=== PATIENT | male | born 1970 | race Caucasian/White ===

== ENCOUNTER 2018-10-10 05:52 | Day surgery (SDC) | payer OTHER ==
[2018-10-10] VITALS (10 sets, daily range): BP systolic 98–108; BP diastolic 62–73; PULSE 50–60; RESP 12–24; Ht 172.7 cm; Wt 69.9 kg
[~2018-10-10] VITALS: Ht 172.7 cm; Wt 69.9 kg
[2018-10-10] MEDS ORDERED: DIVA-48 PO (06:54)
[2018-10-10] MEDS ORDERED: ZONI100C66 PO (06:54)
[2018-10-10] MEDS ORDERED: LAMO100T83 PO (06:54)
[2018-10-10] MEDS ORDERED: LEVE750T70 PO (06:54)
[2018-10-10] MEDS ORDERED: SEVOFLURANE 15 MIN ONE (07:00)
--- NOTE | 2018-10-10 07:03 | PREAC ---
Date/Time of Note Date/Time of Note DATE: 10/10/18 TIME: 07:03 Anesthesia Eval and Record Evaluation Time Pre-Procedure Interview DATE: 10/10/18 TIME: 07:03 Age 48 Sex male NPO: 8 hrs Preoperative diagnosis Left kidney stone Planned procedure Cystoxcopy, left retrograde pyelogram, insertion of left ureteral stent, left extracorporeal shockwave lithotripsy Past Medical History Past Medical History: Includes Neuro: Seizure disorder Surgery & Anesthesia Issues No known issue Meds Anticoagulation: No Beta Britta within 24 hr: No Reason Beta Britta not given: Pt. not on B-Britta Reported Medications Zonisamide* (Zonegran*) 100 Mg Capsule, 100 MG PO QHS, CAP 10/10/18 Lamotrigine* (Lamictal*) 100 Mg Tablet, 100 MG PO BID, TAB 10/10/18 Levetiracetam* (Keppra*) 750 Mg Tablet, 1500 MG PO BID, TAB 10/10/18 Divalproex Sodium* (Depakote*) 500 Mg Tablet.dr, 500 MG PO BID, #90 TAB 10/10/18 Meds reviewed: Yes Allergies Coded Allergies: No Known Allergy (Unverified , 10/10/18) Allergies Reviewed: Yes Labs/Studies Labs Reviewed: Reviewed by anesthesiologist test: N/A Pre-procedure Exam Airway: Adequate mouth opening Mallampati: Mallampati I Teeth: Normal Lung: Normal Heart: Normal ASA Physical Status ASA physical status: 2 Emergency: None Planned Anesthetic General/MAC: ETT Planned Pain Management Parenteral pain med Pre-operative Attestations Prior to commencing anesthesia and surgery, the patient was re-evaluated, there was verification of: *The patient's identity *The results of appropriate recent lab work and preoperative vital signs *The above evaluation not changing prior to induction *Anesthetic plan, risk benefits, alternative and complications discussed with patient/family; questions answered; patient/family understands, accepts and wishes to proceed. LAZARO SILVA MD Oct 10, 2018 07:03
[2018-10-10] MEDS ORDERED: ROCURONIUM 50 MG INJ ONE (07:27)
[2018-10-10] MEDS ORDERED: GLYCOPYRROLATE 0.4 MG INJ ONE ×2 (07:27→08:33)
[2018-10-10] MEDS ORDERED: NEOSTIGMINE 3 MG/3 ML SYRINGE ONE ×2 (07:27→08:33)
[2018-10-10] MEDS ORDERED: LIDOCAINE 2% (SDV) 5 ML INJ ONE (07:27)
[2018-10-10] MEDS ORDERED: SUCCINYLCHOLINE CHLORIDE 100 MG/5 ML SYG IV ONE (07:27)
[2018-10-10] MEDS ORDERED: PROPOFOL 20 ML ONE (07:27)
[2018-10-10] MEDS ORDERED: CIPROFLOXACIN 400MG/D5W 200 ML ONE (07:34)
--- NOTE | 2018-10-10 07:45 | HPN ---
Date/Time of Note Date/Time of Note DATE: 10/10/18 TIME: 07:45 Interval H&P Admission Note Pt. seen H&P reviewed: No system changes LUÍS SMITH Oct 10, 2018 07:45
[2018-10-10] MEDS ORDERED: IOHEXOL 300MG/ML 30 ML BTL ONE (07:51)
[2018-10-10] MEDS ORDERED: hydrALAzine 20 MG INJ IV PRN (08:30)
[2018-10-10] MEDS ORDERED: LABETALOL HCL 20MG INJ IV PRN (08:30)
[2018-10-10] MEDS ORDERED: HYDROmorphONE 1 MG/5 ML IV SYRINGE IV PRN ×3 (08:30)
[2018-10-10] MEDS ORDERED: EPHEDrine SULFATE 50 MG/5 ML SYG IV PRN (08:30)
[2018-10-10] MEDS ORDERED: ONDANSETRON 4 MG INJ IV PRN (08:30)
[2018-10-10] MEDS ORDERED: DIPHENHYDRAMINE 50 MG INJ IV PRN (08:30)
[2018-10-10] MEDS ORDERED: MEPERIDINE 25 MG INJ IV PRN (08:30)
[2018-10-10] MEDS ORDERED: METOCLOPRAMIDE 10 MG INJ IV PRN (08:30)
[2018-10-10] MEDS ORDERED: MIDAZOLAM 1 MG/ML 2 ML INJ IV PRN (08:30)
[2018-10-10] MEDS ORDERED: FENTAnyl 50 MCG/ML VIAL IV PRN ×3 (08:30)
[2018-10-10] MEDS ORDERED: OXYCODONE/ACETAMINOPHEN (5/325) TAB PO PRN ×2 (08:30)
--- NOTE | 2018-10-10 09:18 | PDOCDIS ---
Discharge Instructions DIAGNOSIS Discharge Diagnosis Left Kidney Stone CONDITION Paula Patient Condition: Miguel A Good HOME CARE INSTRUCTIONS: Paula Diet Instructions: Miguel A Regular ACTIVITY: Paula Activity Restrictions: Miguel A Slowly Increase Activity Paula Bathing Restrictions: Miguel A Shower FOLLOW UP/APPOINTMENTS Follow-up Plan Call for to first arrange for an x ray and then after x ray make appointment for removal of stent Obtain x ray in 2 weeks Stent should not stay for more than one month REFERRALS Paula Referring Provider: LUÍS Collins EVAN Oct 10, 2018 09:18
--- NOTE | 2018-10-10 09:22 | OPR ---
Date/Time of Note Date/Time of Note DATE: 10/10/18 TIME: 09:20 Operative Report Procedure Date: Oct 10, 2018 Preoperative Diagnosis Left kidney stone Postoperative Diagnosis Same Operation/Procedure Performed Cytso, left RGP, stent, ESWL Surgeon Joann Equine Intern None Anesthesia Type: general Estimated Blood Loss: none Transfusion none Specimen none Grafts/Implants none Tubes/Drains 26 cm 4 .8 f stent Complications none Pt Condition Post Procedure: stable Indications stone Procedure Description full note dictated LUÍS SMITH Oct 10, 2018 09:22
--- NOTE | 2018-10-10 09:47 | PAC ---
Date/Time of Note Date/Time of Note DATE: 10/10/18 TIME: 09:47 Post-Anesthesia Notes Post-Anesthesia Note Last documented vital signs Vital Signs Date Temp Pulse Resp B/P (MAP) Pulse Ox O2 O2 Flow FiO2 Time Delivery Rate 10/10/18 98.1 09:42 10/10/18 54 18 101/68 99 Mask 09:24 (79) Activity: WNL Respiratory function: WNL Cardiovascular function: WNL Mental status: Baseline Pain reasonably controlled: Yes Hydration appropriate: Yes Nausea/Vomiting absent: Yes LAZARO SILVA MD Oct 10, 2018 09:47
--- NOTE | 2018-10-10 09:50 | OPR ---
DATE OF OPERATION: 10/10/2018 PREOPERATIVE DIAGNOSIS: 8 x 8 mm left mid pole renal calculi. POSTOPERATIVE DIAGNOSIS: 8 x 8 mm left mid pole renal calculi. OPERATION PERFORMED: Cystoscopy, left retrograde pyelogram, insertion of left ureteral stent, left e xtracorporeal shockwave lithotripsy. ANESTHESIA: General. COMPLICATIONS: None. DESCRIPTION OF PROCEDURE: The patient was brought into the operating room and placed on the [employer] SLX lithotripter for left extracorporeal shockwave lithotripsy. A timeout was undertaken. Ap propriate pressure points were padded. He received preoperative antibiotic therapy and sequential co mpression devices were applied. A KUB with obliques was obtained on the table, which demonstrated an 8 x 8 mm stone overlying the left renal fossa. The patient was repositioned for rigid cystoscopy, w hich was undertaken with a 12-degree angle lens. No abnormalities of the anterior or posterior ureth ra could be appreciated. The bladder was inspected in a systematic fashion. No bladder tumor could be appreciated. Bilateral ureteral orifices are within normal limits. A 5-Mosotho open-ended cathete r was utilized for retrograde pyelogram, which delineated a normal course and caliber of the ureter w ithout any intraureteral stone within the collecting system. An 8 mm stone is appreciated in the lef t midpole. A wire was placed up to the level of the superior pole, which then allowed for a 26 cm 4. 8-Mosotho double-J ureteral stent to be inserted with the proximal aspect coiling within the renal pel vis and the distal aspect coiling within the bladder. Attached to the distal end was tapered assurin g proper position was confirmed with direct vision fluoroscopy and a KUB. His bladder was emptied an d he was repositioned on the table for left ESWL. After placing the stone in the appropriate focal p oint, ESWL was initiated with an energy setting of 3, which was progressively increased to 7 at 200 s hocks. A 2-minute pause was undertaken intermittently. Fluoroscopy was utilized to keep the stone i n a proper focal point and the stone was maintained in the proper focal point throughout the entire t anmol. At 2000 shocks, no further stone burden could be appreciated and thus the procedure was ended. He was transferred to recovery room in stable condition. PLAN: He will be discharged to home on Walker 5/325 one tab p.o. q.6h. p.r.n., dispense #30. Pyridiu m 100 mg p.o. t.i.d. p.r.n., dispensed #30 with no refill. In 2 weeks' time a KUB with obliques will be obtained and then he will follow up in the office for hopeful cystoscopy, and stent removal. Dictated By: LUÍS SMITH MD EGR/NTS Conf#: [id number] DID#: [id number] CC: LUÍS SMITH MD;*EndCC*
== END 2018-10-10 11:32 | disposition home or self-care (01) ==
LOC: SDS 05:52
PROVIDERS: ATTEND Urology
DX: N20.0 Calculus of kidney (principal)
CPT/HCPCS: 52356; C2617; J0744; J1170; J2405; J2710; J3010; Q9967; Z7512; Z7610